=== PATIENT | female | born 1970 | race African-American/Black ===

== ENCOUNTER 2025-05-11 17:20 | Emergency (ER) | payer BC, SELFPAY ==
--- NOTE | 2025-05-11 17:26 | ED.DENTAL ---
HPI - Dental/Oral General Chief complaint: Dental/Oral Stated complaint: Dental Pain Time Seen by Provider: 05/11/25 17:24 Source: patient Mode of arrival: ambulatory Limitations: no limitations History of Present Illness ED Provider: HPI Narrative: Presenting with right facial swelling, has chipped tooth, no fevers or chills no neck stiffness no voice change. Related Data Previous Rx's ?Medication ?Instructions ?Recorded clindamycin HCl 300 mg capsule 300 mg PO BID 7 days #14 caps 05/11/25 (Cleocin HCl) Allergies Allergy/AdvReac Type Severity Reaction Status Date / Time No Known Allergies Allergy Verified 05/11/25 17:30 Review of Systems Constitutional: Constitutional: Reports as per HPI Physical Exam Exam: Exam: Well-appearing Speaking full sentences No trismus Supple neck Alert and oriented x4 Subtle swelling of the right cheek Medical Decision Making Medical Decision Making [facility] Narrative: 5:29 PM 05/11/2025 (Dr. Dell Fontenot): Well-appearing, presenting with a chipped tooth, dental pain, slight swelling just started earlier today, no fevers or chills no evidence for deep space infection such as Neftaly's angina, deep space infection of the neck, no considerations for peritonsillar abscess or any facial cellulitis Differential Diagnosis Differential Diagnoses: The differential diagnosis associated with the presentation includes (See above) Discharge Plan Discharge Clinical Impression: Pain, dental Patient Disposition: Home, Self-Care Instructions: Toothache (ED) Additional Instructions: Follow up with the dentist, 300 mg of clindamycin twice daily for the next 5-7 days Ibuprofen Tylenol as needed for pain and swelling, inability to swallow liquids or solids, neck stiffness, spiking fevers worsening pain come back to the ER Prescriptions: New clindamycin HCl [Cleocin HCl] 300 mg capsule 300 mg PO BID 7 Days Qty: 14 0RF
[2025-05-11 17:28] VITALS: BP 124/83; PULSE 110; RESP 16; TEMP 36.6; O2SAT 95; BMI 27.8
[2025-05-11 17:46] VITALS: BP 124/83; PULSE 110; RESP 16; TEMP 36.6; O2SAT 95
--- OUTSIDE RECORDS SUMMARY | 2025-05-11 20:52 | XMS_ITS | Clinical Summary ---
Author Organization [facility] Address [address] [place] [address] Care Team Providers Care Printing Table Hand Name Role Phone Unavailable Primary Care Provider Unavailabl e Social History Tobacco Use Types Packs/Day Years Used Date Smoking Tobacco: Never Assessed Comments Unknown Sex and Gender Information Value Date Recorded Sex Assigned at Not on file Legal Sex Female 4:01 PM EDT Gender Identity Not on file Sexual Orientation Not on file Plan of Treatment Health Maintenance Due Date Last Done Comments Hepatitis C Virus Screening 1972 HIV Screening 1985 DTaP/Tdap/Td Vaccines (1 - Tdap) 1991 Hepatitis B Vaccines (1 of 3 - 19+ 3-dose series) 01/1991 Pneumococcal Vaccines 50+ (1 of 1 - PCV) 2022 Zoster (Shingles) Vaccine (1 of 2) 2022 COVID-19 Vaccine (1 - season) 2025 RSV Vaccine 50 years and old er and Patients (1 - 1-dose 75+ series) 2047
--- OUTSIDE RECORDS SUMMARY | 2025-05-11 20:52 | XMS_ITS | Clinical Summary ---
Author Organization [facility] Address [address] [place], [place] [id number] Phone Care Team Providers Care Intensive Care Ambulance Paramedic Name Role Phone Unknown, Unknown MD Primary Care Provider Naz wilkerson Immunizations Immunization Administration Dates Next Due COVID-19 (Pre-05/14) Moderna Vaccine, mRNA, PF 07/19/2021,08/25/2020,07/27/2020 Influenza, Unspecified Formulation 04/19,04/05/2021,05/24/2020,2019 Social History Tobacco Use Types Packs/Day Years Used Date Smoking Tobacco: Never Assessed Education Answer Date Recorded Are you interested in more education? Not on estephania e 11/17/2022 Are you concerned about learning? Not on file 11/17/2022 No 11/17/2022 No 11/17/2022 Digital Access Answer Date Recorded No 12/16/2022 No 12/16/2022 No 12/16/2022 Reliable internet access at home? Not on file 12/16/2022 Device with a working camera? Not on file Comments Unknown Sex and Gender Information Value Date Recorded Sex Assigned at Not on file Legal Sex Female 10:27 AM EST Gender Identity Not on file Sexual Orientation Not on file Plan of Treatment Health Maintenance Due Date Last Done Comments LIPID PANEL 1972 DEPRESSION SCREENING 1984 SMOKING Hx and SMOKELESS TOBACCO SCREENING 1985 HEPATITIS C SCREENING 1990 HIV ONE-TIME SCREENING (18-65 YEARS) 1990 PAP SMEAR 1993 MAMMOGRAM 2012 COLOGUARD 2017 COLONOSCOPY 2017 COLORECTAL CANCER SCREENING 2017 FIT TEST 2017 FOBT 2017 SIGMOIDOSCOPY 2017 VIRTUAL COLONOSCOPY 2017 PNEUMOCOCCAL VACCINES (50+ years) (1 of 1 - PCV) 2022 ZOSTER VACCINES (1 of 2) 2022 INFLUENZA VACCINE (#1) 2025 2, 04/05/2021, 05/24/2020, Additional history exists COVID-19 VACCINE ( season) 2025 07/19/2021, 08/25/2020, 07/27/2020 Adult Td,Tdap Booster 07/10/2028 07/10/2018 RSV VACCINE (1 - 1-dose 75+ series) 2047 HEPATITIS A VACCINES Aged Out No long er eligible based on patient's age to complete this topic HIB VACCINES Aged Out No longer eligi ble based on patient's age to complete this topic MENINGOCOCCAL VACCINES (ACWY) Aged Out No longer eligible based on patient's age to complete this topic MENINGOCOCCAL VACCINES (B) Aged Out N o longer eligible based on patient's age to complete this topic Medical Devices Not on file Care Teams Intensive Care Ambulance Paramedic Relationship Specialty Start Date End Date Unknown, Unknown, PCP - General 07/07/20 Additional Source Comments The information contained in this document represents components of the legal health record. It is not the complete legal health record.[facility]
== END 2025-05-11 17:47 | disposition home or self-care (01) ==
PROVIDERS: Emergency Provider Emergency Medicine; PCP Internal Medicine
DX: K08.89 Other specified disorders of teeth and supporting structures (principal)
CPT/HCPCS: 99282; 99283

== ENCOUNTER 2025-06-13 20:59 | Emergency (ER) | payer BC, SELFPAY ==
[2025-06-13 21:07] VITALS: BP 150/90; PULSE 110; RESP 18; TEMP 36.5; O2SAT 99; BMI 28.5
--- NOTE | 2025-06-13 21:09 | ED.GENADULT ---
HPI - General Adult General Chief complaint: Dental/Oral Stated complaint: dental pain Time Seen by Provider: 06/13/25 21:09 Source: patient, RN notes reviewed and old records reviewed Mode of arrival: ambulatory Limitations: no limitations History of Present Illness ED Provider: Jamie ACOSTA narrative: 55-year-old female presents for evaluation of right-sided facial pain. She has had intermittent facial pain for 2 weeks. She reports that she broke a right lower molar in February of this year. Over last 8 hours today she noticed slowly worsening swelling to the right side of her face. Related Data Previous Rx's ?Medication ?Instructions ?Recorded clindamycin HCl 300 mg capsule 300 mg PO BID 7 days #14 caps 05/11/25 (Cleocin HCl) amoxicillin 875 mg-potassium 1 tab PO Q12H #13 tabs 06/13/25 clavulanate 125 mg tablet Allergies Allergy/AdvReac Type Severity Reaction Status Date / Time No Known Allergies Allergy Verified 06/13/25 21:09 Review of Systems Constitutional: Constitutional: Denies body ache(s), Denies chills and Denies fever(s) ENT: Denies vertigo, Denies dizziness, Reports facial pain, Denies throat swelling, Denies tongue swelling and Denies widening between teeth Cardiovascular: Cardiovascular: Denies chest pain Gastrointestinal: Gastrointestinal: Denies abdominal pain Integumentary/Breasts: Skin/Breast: Denies rash Neurologic: Denies vertigo and Denies dizziness Allergic/Immunologic: Allergic/Immunologic: Denies throat swelling and Denies tongue swelling PMFSH Social History Social History Advance Directives: No Advance Directives Information Provided: Yes Physical Exam ED Vital Signs: Vital Signs - 24 hr 06/13/25 21:07 06/13/25 21:19 Temperature 97.7 F 97.7 F Pulse Rate 110 H 110 H Respiratory Rate 18 18 Blood Pressure 150/90 H 150/90 H Pulse Oximetry 99 99 Oxygen Delivery Method Room Air Room Air BMI result Body Mass Index 28.5 Const General: healthy appearing, comfortable, no acute distress, alert and awake Nutritional Appearance: well nourished Orientation/consciousness: patient oriented x3 HENMT Other: Mild right lower facial edema. No erythema, fluctuance. the patient has dental fracture to the right lower molar with dentin exposed. Minimal gingival edema, no obvious abscess Head: Yes normocephalic and Yes atraumatic Resp Effort & Inspection: normal respiratory effort, able to speak in complete sentences and not labored Neuro General: patient oriented x3 Cranial nerves: Yes Bilaterally intact EOM present Cognition (Neuro): normal cognition Extrem Other: Moving all extremities well without any obvious deformities Medications Administered Discontinued Medications Generic Name Dose Route Start Last Admin Trade Name Gurjitq PRN Reason Stop Dose Admin Amoxicillin/Clavulanate Potassium 875 mg 06/13/25 21:14 06/13/25 21:17 Amoxicillin/Potassium Clav 875 Mg Tablet PO 06/13/25 21:15 875 mg ONCE ONE Administration Medical Decision Making Medical Decision Making MDM Narrative: 55-year-old female presents for evaluation of right-sided facial pain and swelling in the area of a recent dental fracture. She appears to have a mild developing dental infection. No evident abscess or systemic infection, no evident airway compromise. We will treat with a course of Augmentin. Differential Diagnosis Differential Diagnoses: The differential diagnosis associated with the presentation includes Dental fracture Dental caries Gingivitis Dental abscess Discharge Plan Discharge Clinical Impression: Atypical facial pain Patient Disposition: Home, Self-Care Instructions: Atypical Facial Pain (ED) Additional Instructions: take the Augmentin twice daily for 1 week pain Follow up with a dentist as soon as possible for definitive treatment. You may also use [id number] Orajel and/or Motrin/Tylenol for your pain Prescriptions: New amoxicillin-pot clavulanate 875-125 mg tablet 1 tab PO Q12H Qty: 13 0RF No Action clindamycin HCl [Cleocin HCl] 300 mg capsule 300 mg PO BID 7 Days Qty: 14 0RF Interventions: ED Discharge Assessment Last Done: 06/13/25 21:19 Discharge Date/Time: 06/13/25 21:21 Print Language: Japanese
--- OUTSIDE RECORDS SUMMARY | 2025-06-13 21:16 | XMS_ITS | Clinical Summary ---
Author Organization [facility] Address [address] [place], [place] [id number] Phone Care Team Providers Care Compressor Operator Portable Name Role Phone Unknown, Unknown MD Primary [...] Medical Devices Not on file Care Teams Compressor Operator Portable Relationship Specialty Start Date End Date Unknown, Unknown, PCP - General 07/07/20 Additional Source Comments The information contained in this document represents components of the legal health record. It is not the complete legal health record.[facility]
--- OUTSIDE RECORDS SUMMARY | 2025-06-13 21:16 | XMS_ITS | Data Portability ---
Author Organization [facility] [address] Address [address] [place] [address] Assessment No assessment recorded. Plan of Treatment Reminders Order Date Submit Date Provider Last Modified By Organization Details Last Modified Time Details Appointments None record ed. Lab None record ed. Referral None record ed. Procedures None record ed. Surgeries None record ed. Imaging None record ed. Medication Orders None record ed. Patient TargetsNo targets recorded. Patient InstructionsNo instructions recorded. Reason for Referral None Reported. Procedures Surgical History Date Name Laterality Status Provider Name and Address Organization Details Recorded Time OC-UDS Send Out Template NON DOT completed Deborah Cunha [facility] 10/25/2022 10:32:50 Imaging Results None recorded. Procedure Notes None recorded. Medical Equipment None Reported. Medications Name Sig Start Date Stop Date Status Note LastModified by Organization Details LastModified Time amlodipine 5 mg-benazepril 10 mg capsule active Not Available Not Availabl e Not Available methylprednisol one 4 mg tablets in a dose pack TAKE SIX TABLETS FOR 1 DAY, THEN FIVE TABLETS FOR 1 DAY, THEN FOUR TABLETS FOR 1 DAY,THEN THREE TABLETS FOR 1 DAY, THEN TWO TABLETS FOR 1 DA active Not Available Not Available No t Available Vitals None Recorded Social History None recorded. Functional Status None recorded. Mental Status None recorded. Family History Nothing Reported. Medical History No medical history recorded. Gynecological HistoryNo gynecological history recorded. Obstetrics History GPAL:G 0 P 0 0 0 0 Past Encounters Encounter ID Performer Location Encounter Start Date Encounter Closed Date Diagnosis/Indication Diagnosis SNOMED-CT Code Diagnosis ICD10 Code Diagnosis IMO Codes Diagnosis Note [id number] [address] [place] [address] 05/24/2020 09:42:22 05/24/2020 12:42:42 [id number] Alphonso Soriano, DIRECTOR OF DIV[employer] AND IN[employer] [id number] [facility] [address] [place] [place] [address] 10/25/2022 10:01:28 10/25/2022 10:36:18 History and physical examination, occupation 701756326 Z02.1 Health Concerns Section Related Observation LastModified by Organization Detai ls LastModified Time None Recorded Concern Status LastModified by Organization Details LastModified Time None Recorded Advance Directives Directive None Recorded Payers Insurance Date Sequence Insurance Name Policy Number Policy Alfred Covered Member ID Aflred Member ID Guarantor Name 10/25/2022 OC-ESCREEN [employer] Alyssa Rose OBGyn Episode No OBEpisode recorded.
--- OUTSIDE RECORDS SUMMARY | 2025-06-13 21:16 | XMS_ITS | Clinical Summary ---
Author Organization [facility] Address [address] [place] [address] Care Team Providers Care Energy Projects Lead Name Role Phone Unavailable Primary Care Provider [...]
[2025-06-13 21:19] VITALS: BP 150/90; PULSE 110; RESP 18; TEMP 36.5; O2SAT 99
== END 2025-06-13 21:21 | disposition home or self-care (01) ==
PROVIDERS: Emergency Provider Emergency Medicine; PCP Internal Medicine
DX: G50.1 Atypical facial pain (principal); K08.89 Other specified disorders of teeth and supporting structures
CPT/HCPCS: 99282; 99283